=== PATIENT | female | born 1965 | race Caucasian/White ===

== ENCOUNTER → 2016-07-22 | Outpatient (CLI) | payer BC ==
[~2016-07-22] VITALS: Ht 162.6 cm; Wt 59.0 kg
[~2016-07-22] MED LIST: ALPR0.255 PO; INSLAN SQ; LEVO125T4 PO; NPH INSULIN SQ; PARO20TA41 PO
[2016-07-22 13:59] VITALS: BP 108/62
== END | disposition home or self-care (01) ==
LOC: SRCNTR 13:52
PROVIDERS: ATTEND Internal Medicine Critical Care Medicine
DX: E11.9 Type 2 diabetes mellitus without complications (principal); I10 Essential (primary) hypertension; E78.5 Hyperlipidemia, unspecified; R91.8 Other nonspecific abnormal finding of lung field
CPT/HCPCS: G0463

== ENCOUNTER → 2016-08-10 | Outpatient (CLI) | payer BC ==
[~2016-08-10] MED LIST changes: +INSU100V SQ; -NPH INSULIN SQ
[2016-08-10 13:26] LABS: BASOPHILS % (AUTO) 1.3 % (0.0-2.0); EOSINOPHILS % (AUTO) 2.9 % (1.0-6.0); HEMATOCRIT 37.3 % (36-46); LYMPHOCYTES # (AUTO) 0.8 K/uL (1.0-4.8); LYMPHOCYTES % (AUTO) 18.7 % (22.0-44.0); MEAN CORPUSCULAR HEMOGLOBIN 27.6 pg (26.0-34.0); MEAN CORPUSCULAR HGB CONC 32.3 G/dL (31.0-37.0); MEAN CORPUSCULAR VOLUME 86 fL (80-100); MONOCYTES # (AUTO) 0.4 K/uL (0.1-1.0); NEUTROPHILS # (AUTO) 2.8 K/uL (1.8-7.7); NEUTROPHILS % (AUTO) 68.1 % (40.0-70.0); PLATELET COUNT (AUTO) 264 K/uL (150-450); RED BLOOD CELL COUNT(AUTO) 4.36 MIL/uL (4.00-5.20); RED CELL DISTRIBUTION WIDTH 14.4 % (11.5-14.5); WHITE BLOOD COUNT (AUTO) 4.1 K/uL (4.5-11.0)
[2016-08-10 13:38] LABS: INR 0.9 (0.9-1.1)
[2016-08-17 10:18] LABS: COCCIDIOIDES BY CF(UCDAVIS) Negative; COCCIDIOIDES IMMUNODIF-UCDAVIS Negative; COCCIDIOIDES INTERP.(UCDAVIS) Comment:
== END | disposition home or self-care (01) ==
LOC: LABPV 11:06
PROVIDERS: ATTEND Internal Medicine Critical Care Medicine
DX: D72.829 Elevated white blood cell count, unspecified (principal)
CPT/HCPCS: 86171; 86331; 86480

== ENCOUNTER → 2016-08-10 | Outpatient (CLI) | payer BC ==
[~2016-08-10] VITALS: Ht 162.6 cm; Wt 59.5 kg
[2016-08-10 10:01] VITALS: BP 111/64
== END | disposition home or self-care (01) ==
LOC: SRCNTR 09:50
PROVIDERS: ATTEND Internal Medicine Critical Care Medicine
DX: E11.9 Type 2 diabetes mellitus without complications (principal); E78.5 Hyperlipidemia, unspecified; I10 Essential (primary) hypertension; E03.9 Hypothyroidism, unspecified; R91.8 Other nonspecific abnormal finding of lung field; Z77.22 Contact with and (suspected) exposure to environmental tobacco smoke (acute) (chronic)
CPT/HCPCS: G0463

== ENCOUNTER 2016-08-20 06:42 | Day surgery (SDC) | payer BC ==
[~2016-08-20] VITALS: Ht 160 cm; Wt 59.1 kg
[~2016-08-20 06:42] MED LIST changes: -INSU100V SQ
[2016-08-20] MEDS ORDERED: SODIUM CHLORIDE 0.9% 1,000 ML IV ONE ×2 (06:53→09:30)
[2016-08-20 07:52] LABS: GLUCOSE COMMENT 1 Doctor Notified; GLUCOSE,POINT OF CARE 223 MG/DL (70-110)
[2016-08-20 08:32] LABS: CALCIUM, TOTAL 8.8 mg/dL (8.8-10.5); CREATININE 1.14 mg/dL (0.60-1.30); POTASSIUM 5.2 mmol/L (3.5-5.1)
[2016-08-20] MEDS ORDERED: FentaNYL CITRATE-PF 100 MCG/2 ML VIAL ONE (09:04)
[2016-08-20] MEDS ORDERED: MIDAZOLAM HCL 2 MG/2 ML VIAL ONE (09:04)
[2016-08-20] MEDS ORDERED: NALOXONE HCL 0.4 MG/ML VIAL ONE (09:05)
[2016-08-20] MEDS ORDERED: FLUMAZENIL 0.1 MG/ML 5 ML VIAL IVP ONE (09:05)
[2016-08-20] MEDS ORDERED: LIDOCAINE HCL/PF 1% 30 ML VIAL ONE (09:05)
[2016-08-20 11:31] LABS: GLUCOSE,POINT OF CARE 206 MG/DL (70-110)
[2016-08-30] MEDS ORDERED: INSU100V SQ (11:09)
== END 2016-08-20 14:05 | disposition home or self-care (01) ==
LOC: SDS 06:42 → EDSTATUS 09:00 → SDS 14:05
PROVIDERS: ATTEND Internal Medicine Critical Care Medicine
DX: R91.8 Other nonspecific abnormal finding of lung field (principal); E03.9 Hypothyroidism, unspecified; I10 Essential (primary) hypertension; E78.5 Hyperlipidemia, unspecified; E10.9 Type 1 diabetes mellitus without complications; Z90.710 Acquired absence of both cervix and uterus
CPT/HCPCS: 32405; 36415; 71010; 80048; 82962; 87015; 87070; 87101; 87205; 93005; J2250; J3010; J7030; 88305; J2310; J3490

== ENCOUNTER → 2016-08-30 | Outpatient (CLI) | payer BC ==
[~2016-08-30] VITALS: Ht 162.6 cm; Wt 61.0 kg
[~2016-08-30] MED LIST changes: +INSU100V SQ
[2016-08-30 11:04] VITALS: BP 134/72
== END | disposition home or self-care (01) ==
LOC: SRCNTR 10:54
PROVIDERS: ATTEND Internal Medicine Critical Care Medicine
DX: E11.9 Type 2 diabetes mellitus without complications (principal); R91.8 Other nonspecific abnormal finding of lung field; I10 Essential (primary) hypertension; E78.5 Hyperlipidemia, unspecified; E03.9 Hypothyroidism, unspecified; Z79.4 Long term (current) use of insulin
CPT/HCPCS: G0463

== ENCOUNTER 2017-03-02 15:47 | Emergency (ER) | payer BC ==
[~2017-03-02] VITALS: Ht 162.6 cm; Wt 62.7 kg
[~2017-03-02 15:47] MED LIST changes: +PARO-66 PO; -PARO20TA41 PO
[2017-03-02] MEDS ORDERED: DEXTROSE 5%-0.9% SODIUM CHL 1,000 ML IV ONE (16:30)
[2017-03-02] MEDS ORDERED: DEXTROSE 50%-WATER 25 GM/50 ML SYRINGE IVP ONE (16:30)
[2017-03-02 16:42] LABS: BASOPHILS % (AUTO) 0.7 % (0.0-2.0); EOSINOPHILS % (AUTO) 1.7 % (1.0-6.0); HEMATOCRIT 40.6 % (36-46); HEMOGLOBIN 13.3 g/dL (12.0-16.0); LYMPHOCYTES # (AUTO) 1.7 K/uL (1.0-4.8); MEAN CORPUSCULAR HEMOGLOBIN 28.4 pg (26.0-34.0); MEAN CORPUSCULAR HGB CONC 32.8 G/dL (31.0-37.0); MEAN CORPUSCULAR VOLUME 87 fL (80-100); MONOCYTES % (AUTO) 11.7 % (2.0-9.0); NEUTROPHILS # (AUTO) 5.5 K/uL (1.8-7.7); NEUTROPHILS % (AUTO) 65.9 % (40.0-70.0); PLATELET COUNT (AUTO) 271 K/uL (150-450); RED BLOOD CELL COUNT(AUTO) 4.69 MIL/uL (4.00-5.20); RED CELL DISTRIBUTION WIDTH 14.4 % (11.5-14.5); WHITE BLOOD COUNT (AUTO) 8.3 K/uL (4.5-11.0)
[2017-03-02 16:44] LABS: ALBUMIN 3.8 g/dL (3.4-5.0); BILIRUBIN,TOTAL 0.3 mg/dL (0.1-1.0); CALCIUM, TOTAL 9.5 mg/dL (8.8-10.5); CREATININE 1.15 mg/dL (0.60-1.30)
[2017-03-02 16:57] LABS: GLUCOSE,POINT OF CARE 76 MG/DL (70-110)
[2017-03-02] MEDS ORDERED: POTASSIUM CHLORIDE 20 MEQ ER TABLET PO ONE (17:00)
[2017-03-02 18:02] LABS: GLUCOSE,POINT OF CARE 167 MG/DL (70-110)
[2017-03-02 18:52] LABS: GLUCOSE,POINT OF CARE 151 MG/DL (70-110)
[2017-03-02 19:57] LABS: GLUCOSE,POINT OF CARE 190 MG/DL (70-110)
[2017-03-02 20:27] VITALS: BP 128/65
== END 2017-03-02 20:34 | disposition home or self-care (01) ==
LOC: EMS 15:48
DX: E11.649 Type 2 diabetes mellitus with hypoglycemia without coma (principal); I10 Essential (primary) hypertension; E03.9 Hypothyroidism, unspecified; Z79.4 Long term (current) use of insulin; Z88.8 Allergy status to other drugs, medicaments and biological substances; Z88.5 Allergy status to narcotic agent
CPT/HCPCS: 36415; 80053; 82962; 85025; 96361; 96374; 99285; J7042

== ENCOUNTER 2017-05-05 16:33 | Emergency (ER) | payer BC ==
[~2017-05-05] VITALS: Ht 162.6 cm; Wt 61.8 kg
[2017-05-05] MEDS ORDERED: SIMV-260 PO (16:42)
[2017-05-05 16:52] LABS: GLUCOSE,POINT OF CARE 293 MG/DL (70-110)
[2017-05-05 17:56] VITALS: BP 134/68
== END 2017-05-05 18:41 | disposition home or self-care (01) ==
LOC: EMS 16:34
DX: J40 Bronchitis, not specified as acute or chronic (principal); E11.9 Type 2 diabetes mellitus without complications; I10 Essential (primary) hypertension; E03.9 Hypothyroidism, unspecified; Z79.4 Long term (current) use of insulin; Z88.5 Allergy status to narcotic agent; Z88.8 Allergy status to other drugs, medicaments and biological substances
CPT/HCPCS: 71020; 82962; 99284

== ENCOUNTER → 2018-12-25 | Outpatient (CLI) | payer BC ==
[~2018-12-25] MED LIST changes: +SIMV-260 PO
== END | disposition home or self-care (01) ==
LOC: RADPV 12:11
PROVIDERS: ATTEND Family Medicine
DX: M25.512 Pain in left shoulder (principal); M79.602 Pain in left arm; M54.2 Cervicalgia